=== PATIENT | male | born 1945 | race Caucasian/White ===

== ENCOUNTER → 2019-11-04 | Outpatient (CLI) | payer MEDICARE ==
--- NOTE | 2019-11-04 15:07 | XR ---
EXAMINATION TYPE: XR shoulder complete LT DATE OF EXAM: 11/04/2019 CLINICAL HISTORY: Left shoulder pain for a few days. Palpable lump per order. TECHNIQUE: Three views of the left shoulder are obtained. COMPARISON: None. FINDINGS: There is no acute fracture/dislocation evident in the left shoulder. Moderate narrowing an d spurring at acromioclavicular joint with capsular hypertrophy causing slight soft tissue prominence superiorly. Distal acromion morphology unremarkable Mild to moderate narrowing glenohumeral joint. T he visualized ribs are intact and unremarkable. IMPRESSION: As above.
--- NOTE | 2019-11-04 15:32 | US ---
EXAMINATION TYPE: US extremity nonvasc complt LT DATE OF EXAM: 11/04/2019 COMPARISON: Same day x-ray CLINICAL HISTORY: R22.32 LUMP ON LT SHOULDER,M26.52 DECREASED ROM LT SHOULDER. Pt states palpable lum p left shoulder In area of pt's palpable left shoulder, shows probable lipoma= 5.2 x 1.4 x 5.6 cm Oval well-circumscribed nonvascular lesion superficial to the deeper muscles that area of clinical co ncern favors benign lipoma. Finding can be confirmed with CT or MRI if desired. IMPRESSION: As above.
== END | disposition home or self-care (01) ==
LOC: RADUSWWP 14:29
PROVIDERS: ATTEND Family Medicine
DX: M25.512 Pain in left shoulder (principal); M25.812 Other specified joint disorders, left shoulder; R22.32 Localized swelling, mass and lump, left upper limb

== ENCOUNTER → 2019-11-24 | Outpatient (CLI) | payer MEDICARE ==
--- NOTE | 2019-11-24 12:45 | MR ---
EXAMINATION TYPE: MR scapula LT wo/w con DATE OF EXAM: 11/24/2019 COMPARISON: Ultrasound 11/04/2019, x-ray 11/18/2019 HISTORY: Pain in left shoulder area and Soft Tissue Mass. CONTRAST: Standard multiplanar, multisequence MRI departmental protocol utilizing 9.5 mL intravenous Gadavist g adolinium contrast. FINDINGS: There is a 5.6 cm fat signal corresponding to the area of palpable abnormality. There is fat saturati on. There is no enhancement. Grossly the rotator cuff tendons are intact. There is arthropathy of the glenohumeral joint and hyper trophic arthropathy of the AC joint. Grossly the labrum are intact. Bicipital tendinosis noted. No in traosseous lesion. IMPRESSION: 1. There is a 5.6 cm fat signal mass in the posterior upper soft tissues of the left shoulder. No enh ancement. Findings are compatible with a lipoma. Given the lesion measures greater than 5 cm atypical lipoma would also be in the differential diagnosis. 2. Bicipital tendinosis.
== END | disposition home or self-care (01) ==
LOC: RADMRIMAIN 11:10
PROVIDERS: ATTEND Orthopaedic Surgery
DX: R22.32 Localized swelling, mass and lump, left upper limb (principal); M67.88 Other specified disorders of synovium and tendon, other site
CPT/HCPCS: 73220; A9585

== ENCOUNTER → 2020-06-02 | Outpatient (CLI) | payer MEDICARE ==
--- NOTE | 2020-06-03 10:56 | ECHOF ---
Referral Reason:R01.1 Cardiac Murmur MEASUREMENTS -------- HEIGHT: 188.0 cm WEIGHT: 98.4 kg BP: RVIDd: 3.6 cm (< 3.3) IVSd: 1.4 cm (0.6 - 1.1) LVIDd: 3.9 cm (3.9 - 5.3) LVPWd: 1.4 cm (0.6 - 1.1) IVSs: 1.9 cm LVIDs: 2.7 cm LVPWs: 1.8 cm LAESV Index (A-L): 23.32 ml/m Ao Diam: 3.3 cm (2.0 - 3.7) AV Cusp: 2.0 cm (1.5 - 2.6) LA Diam: 3.9 cm (2.7 - 3.8) MV EXCURSION: 14.126 mm (> 18.000) MV EF SLOPE: 92 mm/s (70 - 150) EPSS: 0.7 cm MV E Ed: 0.62 m/s MV DecT: 268 ms MV A Ed: 0.72 m/s MV E/A Ratio: 0.87 RAP: 5.00 mmHg RVSP: 32.83 mmHg FINDINGS -------- Sinus rhythm. This was a technically difficult study with suboptimal views. The left ventricular size is normal. There is moderate concentric left ventricular hypertrophy. O verall left ventricular systolic function is low-normal with, an EF between 50 - 55 %. Apical septu m LV wall motion is hypokinetic. The right ventricle is mildly enlarged. Normal LA size by volume 22+/-6 ml/m2. The right atrium was not well visualized. 5.0mg of Lumason was utilized for enhancement of images Interatrial and interventricular septum intact. There is no evidence of aortic regurgitation. There is no evidence of aortic stenosis. Mild mitral regurgitation is present. Mild tricuspid regurgitation present. There is borderline pulmonary artery hypertension. The righ t ventricular systolic pressure, as measured by Doppler, is 32.83mmHg. There is no pulmonic regurgitation present. The aortic root size is normal. There is no pericardial effusion. CONCLUSIONS -------- 1. The left ventricular size is normal. 2. There is moderate concentric left ventricular hypertrophy. 3. Overall left ventricular systolic function is low-normal with, an EF between 50 - 55 %. 4. Apical septum LV wall motion is hypokinetic. 5. The right ventricle is mildly enlarged. 6. Mild mitral regurgitation is present. 7. Mild tricuspid regurgitation present. 8. There is borderline pulmonary artery hypertension. 9. The right ventricular systolic pressure, as measured by Doppler, is 32.83mmHg. RIG HAND: Rupa Chauhan RDCS
== END | disposition home or self-care (01) ==
LOC: RADECHMAIN 11:46
PROVIDERS: ATTEND Family Medicine
DX: I08.1 Rheumatic disorders of both mitral and tricuspid valves (principal); I27.21 Secondary pulmonary arterial hypertension; Z20.822 Contact with and (suspected) exposure to COVID-19
CPT/HCPCS: 86769; C8929; Q9950; 93306

== ENCOUNTER → 2020-06-22 | Outpatient (CLI) | payer MEDICARE ==
--- NOTE | 2020-06-22 08:33 | CTL ---
EXAMINATION TYPE: CT Low Dose Lung DATE OF EXAM ORDERED: 06/22/2020 HISTORY: Long-term tobacco use. Lung cancer screening CT DLP: 120.[address] CTDI: 4.0 mGy Automated exposure control for dose reduction was used. SCREENING VISIT: Initial study COMPARISON: None. TECHNIQUE: Low dose computed tomography scan was performed through the chest at 1 mm thick sections a nd reconstructed images in the coronal plane at [address] DIAGNOSTIC QUALITY: Limited, but interpretable Limitations due to body habitus and some respiratory motion artifact degradation. FINDINGS: LUNG NODULES: None. LUNGS: COPD: Severity: Mild Fibrosis: Severity: Minimal Lymph nodes: No greater than 1 cm Other findings: None RIGHT PLEURAL SPACE: Effusion: None Calcification: None Thickening: None Pneumothorax: None LEFT PLEURAL SPACE: Effusion: None Calcification: None Thickening: None Pneumothorax: None HEART: Heart Size: Normal Coronary calcification: Moderate Pericardial effusion: Non- OTHER FINDINGS: Upper abdomen: None Bony thorax: None Supraclavicular region: None Other: None IMPRESSION: Mild emphysematous change without suspicious nodules. CT LUNG RAD AND CT CHEST RECOMMENDATION: Lung-Rad 1 Negative: Continue annual screening with LDCT in 12 months. (CONSIDER- BASED ON AGE) S Modifier (other clinically significant findings): None
== END | disposition home or self-care (01) ==
LOC: RADCTMAIN 06:59
PROVIDERS: ATTEND Family Medicine
DX: Z12.2 Encounter for screening for malignant neoplasm of respiratory organs (principal); J43.9 Emphysema, unspecified; Z87.891 Personal history of nicotine dependence
CPT/HCPCS: 71271

== ENCOUNTER 2021-04-08 08:57 | Emergency (ER) | payer MEDICARE ==
[2021-04-08 09:09] VITALS: TEMP 98.6
--- NOTE | 2021-04-08 09:43 | ED ---
General Adult HPI - General Chief complaint: Fever Stated complaint: Fever/Bodyaches/Congestion Time Seen by Provider: 04/08/21 09:10 Source: patient, RN notes reviewed, old records reviewed Mode of arrival: ambulatory Limitations: no limitations - History of Present Illness Initial comments: This is a 75-year-old male who presents emergency Department stating that he started having fever last evening and little congestion and body aches. Patient states his 's test positive for COVID just today and he believes he probably has contracted COVID. Patient denies any loss of taste smell per patient denies any diarrhea per patient denies abdominal pain patient denies any chest pain or palpitations or difficulty breathing shortness of breath. - Related Data Allergies Allergy/AdvReac Type Severity Reaction Status Date / Time almond Allergy Unknown Verified 04/08/21 09:10 Penicillins Allergy Unknown Verified 04/08/21 09:10 Review of Systems ROS Statement: Those systems with pertinent positive or pertinent negative responses have been documented in the HPI. ROS Other: All systems not noted in ROS Statement are negative. Past Medical History Past Medical History: Hyperlipidemia, Hypertension, Thyroid Disorder History of Any Multi-Drug Resistant Organisms: None Reported Past Surgical History: Appendectomy Additional Past Surgical History / Comment(s): colon resection Past Psychological History: No Psychological Hx Reported Smoking Status: Former smoker Past Alcohol Use History: Occasional Past Drug Use History: None Reported General Exam - General Exam Comments Initial Comments: GENERAL: Patient is well-developed and well-nourished. Patient is nontoxic and well- hydrated and is in mild distress. ENT: Neck is soft and supple. No significant lymphadenopathy is noted. Oropharynx is clear. Moist mucous membranes. Neck has full range of motion without eliciting any pain. EYES: The sclera were anicteric and conjunctiva were pink and moist. Extraocular movements were intact and pupils were equal round and reactive to light. Eyelids were unremarkable. PULMONARY: Unlabored respirations. Good breath sounds bilaterally. No audible rales rhonchi or wheezing was noted. CARDIOVASCULAR: There is a regular rate and rhythm without any murmurs gallops or rubs. ABDOMEN: Soft and nontender with normal bowel sounds. SKIN: Skin is clear with no lesions or rashes and otherwise unremarkable. NEUROLOGIC: Patient is alert and oriented x3. Cranial nerves II through XII are grossly intact. Motor and sensory are also intact. Normal speech, volume and content. Symmetrical smile. MUSCULOSKELETAL: Normal extremities with adequate strength and full range of motion. LYMPHATICS: No significant lymphadenopathy is noted PSYCHIATRIC: Normal psychiatric evaluation. Limitations: no limitations Course Vital Signs 04/08/21 09:06 Temperature 98.6 F Pulse Rate 73 Respiratory 16 Rate Blood Pressure 110/59 O2 Sat by Pulse 96 Oximetry Medical Decision Making - Medical Decision Making Patient is positive for COVID. Patient received monoclonal antibodies. - Lab Data Lab Results 04/08/21 Range/Units 09:30 Coronavirus (PCR) Detected A (Not Detectd) Disposition Clinical Impression: COVID-19 Disposition: HOME SELF-CARE Instructions (If sedation given, give patient instructions): Coronavirus Disease 2019 (COVID-19) Is patient prescribed a controlled substance at d/c from ED?: No Referrals: Sydnie Resendiz MD [Primary Care Provider] - 1-2 days Time of Disposition: 10:08
[2021-04-08] MEDS ORDERED: SODIUM CHLORIDE 0.9% 50 ML IVPB ONE (10:30)
[2021-04-08] MEDS: BAMLANIVIMAB (EUA) 700 MG, ETESEVIMAB (EUA) 1,400 MG in SODIUM CHLORIDE 0.9% 100 ML IVPB ONE (11:30)
[2021-04-08 12:50] VITALS: BP 116/76; PULSE 72; RESP 18
== END 2021-04-08 12:50 | disposition home or self-care (01) ==
LOC: EC 08:57
DX: U07.1 COVID-19 (principal); I10 Essential (primary) hypertension; E78.5 Hyperlipidemia, unspecified; Z87.891 Personal history of nicotine dependence; Z88.0 Allergy status to penicillin
CPT/HCPCS: 87635; 99283; J3490

== ENCOUNTER 2021-04-26 02:04 | Emergency (ER) | payer MEDICARE ==
[2021-04-26] MEDS ORDERED: MORPHINE SULFATE 4 MG/ML SYRINGE IV STA (03:31)
[2021-04-26] MEDS ORDERED: ONDANSETRON 4 MG/2 ML VIAL IVP STA (03:31)
[2021-04-26] MEDS ORDERED: SODIUM CHLORIDE 0.9% 1,000 ML IV STA (03:31)
--- NOTE | 2021-04-26 03:45 | ED ---
Abdominal Pain HPI - General Source: patient, RN notes reviewed, old records reviewed Mode of arrival: ambulatory Limitations: no limitations - History of Present Illness MD Complaint: abdominal pain -: days(s) Location: diffuse, RLQ Radiation: RLQ Migration to: RLQ Severity: moderate Severity scale (1-10): 4 Quality: stabbing, aching Consistency: constant Improves With: nothing Worsens With: nothing Associated Symptoms: nausea, constipation Treatments Prior to Arrival: other (none) <Carmine Traylor - Last Filed: 04/26/21 05:14> <Florentin Ibanez - Last Filed: 04/26/21 08:05> - General Chief Complaint: Abdominal Pain Stated Complaint: Abdominal pain Time Seen by Provider: 04/26/21 03:32 - History of Present Illness Initial Comments: This is a 75-year-old male to the ER today for evaluation. Patient is presented today for evaluation regards to significant abdominal pain severe with nausea no vomiting no fevers. Right-sided abdominal pain. Patient has had his appendix removed. Patient is also had a colon resection and has had prior colonoscopies. (Carmine Traylor) - Related Data Home Medications Medication Instructions Recorded Confirmed Cholecalciferol [Vitamin D3 (125 125 mcg PO DAILY 04/08/21 04/08/21 Mcg = 5000 Iu)] Levothyroxine Sodium [Synthroid] 75 mcg PO DAILY 04/08/21 04/08/21 Losartan-Hctz 50-12.5 mg [Hyzaar 1 tab PO DAILY 04/08/21 04/08/21 50-12.5] Multivitamins, Thera [Multivitamin 1 tab PO DAILY 04/08/21 04/08/21 (formulary)] Simvastatin 40 mg PO DAILY 04/08/21 04/08/21 Zinc 50 mg PO DAILY 04/08/21 04/08/21 Previous Rx's Medication Instructions Recorded Famotidine [Pepcid] 20 mg PO DAILY 14 Days #14 tablet 04/26/21 Allergies Allergy/AdvReac Type Severity Reaction Status Date / Time almond Allergy Dyspnea Verified 04/26/21 02:49 grass pollen Allergy Diarrhea Verified 04/26/21 02:49 Iodine and Iodide Containing Allergy Anaphylaxis Verified 04/26/21 04:48 Produc Penicillins Allergy Rash/Hives Verified 04/26/21 02:49 Review of Systems ROS Other: All systems not noted in ROS Statement are negative. <Carmine Traylor - Last Filed: 04/26/21 05:14> ROS Other: All systems not noted in ROS Statement are negative. <Florentin Ibanez - Last Filed: 04/26/21 08:05> ROS Statement: Those systems with pertinent positive or pertinent negative responses have been documented in the HPI. Past Medical History Past Medical History: Hyperlipidemia, Hypertension, Thyroid Disorder History of Any Multi-Drug Resistant Organisms: None Reported Past Surgical History: Appendectomy Additional Past Surgical History / Comment(s): colon resection Past Psychological History: No Psychological Hx Reported Smoking Status: Former smoker Past Alcohol Use History: Occasional Past Drug Use History: None Reported <Carmine Traylor - Last Filed: 04/26/21 05:14> General Exam Limitations: no limitations General appearance: alert, in no apparent distress Head exam: Present: atraumatic, normocephalic, normal inspection Eye exam: Present: normal appearance, PERRL, EOMI. Absent: scleral icterus, conjunctival injection, periorbital swelling ENT exam: Present: normal exam, mucous membranes moist Neck exam: Present: normal inspection. Absent: tenderness, meningismus, lymphadenopathy Respiratory exam: Present: normal lung sounds bilaterally. Absent: respiratory distress, wheezes, rales, rhonchi, stridor Cardiovascular Exam: Present: regular rate, normal rhythm, normal heart sounds. Absent: systolic murmur, diastolic murmur, rubs, gallop, clicks GI/Abdominal exam: Present: soft, normal bowel sounds. Absent: distended, tenderness, guarding, rebound, rigid Extremities exam: Present: normal inspection, full ROM, normal capillary refill. Absent: tenderness, pedal edema, joint swelling, calf tenderness Back exam: Present: normal inspection Neurological exam: Present: alert, oriented X3, CN II-XII intact Psychiatric exam: Present: normal affect, normal mood Skin exam: Present: warm, dry, intact, normal color. Absent: rash <Carmine Traylor - Last Filed: 04/26/21 05:14> Course <Carmine Traylor - Last Filed: 04/26/21 05:14> Vital Signs 04/26/21 04/26/21 02:47 05:49 Temperature 98.8 F 97.8 F Pulse Rate 58 L 54 L Respiratory 18 19 Rate Blood Pressure 152/81 117/65 O2 Sat by Pulse 98 Oximetry - Reevaluation(s) Reevaluation #1: 04/26/21 05:15 Medical record is reviewed (Carmine Traylor) Reevaluation #2: 04/26/21 05:15 Patient has adequate pain control (Carmine Traylor) Medical Decision Making - Lab Data Result diagrams: 04/26/21 04:05 04/26/21 04:05 - EKG Data -: EKG Interpreted by Me (EKG is sinus bradycardia 51 DC 172 QRS 90 QTC 394) <Carmine Traylor - Last Filed: 04/26/21 05:14> - Lab Data Result diagrams: 04/26/21 04:05 04/26/21 04:05 <Florentin Ibanez - Last Filed: 04/26/21 08:05> - Medical Decision Making Patient was signed out to me from the overnight physician pending ultrasound of the gallbladder. He presented for abdominal pain on the right side. Laboratory studies as well as CT imaging were unremarkable except for a distended gallbladder with no signs of infection or stones. Patient is currently asymptomatic and feels well. He'll likely be discharged home following ultrasound. Patient's gallbladder ultrasound revealed no mobile gallstones. Gallbladder is mildly distended which is nonspecific. No other associated findings. On reevaluation of the patient, he was feeling improved. He has no acute complaints at this time. We discussed the results of his ultrasound. I believe it is safe for him to be discharged home at this time with follow-up with GI. He was in agreement with this plan. I will provide the patient with a prescription for famotidine. I instructed the patient to follow up with their PCP in the next 3 days. I provided contact information for follow up with [facility]. I explained that the patient should return to the emergency department if they experience any worsening symptoms. Strict return precautions were discussed with the patient. The patient expressed understanding of these instructions. I answered all questions that the patient had. The patient was discharged home in good condition with their prescriptions and follow up information. (Florentin Ibanez) - Lab Data Lab Results 04/26/21 04/26/21 04/26/21 Range/Units 04:05 04:05 04:05 WBC 10.9 H (3.8-10.6) k/uL RBC 4.53 (4.30-5.90) m/uL Hgb 14.1 (13.0-17.5) gm/dL Hct 41.1 (39.0-53.0) % MCV 90.7 (80.0-100.0) fL MCH 31.1 (25.0-35.0) pg MCHC 34.3 (31.0-37.0) g/dL RDW 12.4 (11.5-15.5) % Plt Count 328 (150-450) k/uL MPV 7.8 Neutrophils % 68 % Lymphocytes % 23 % Monocytes % 6 % Eosinophils % 1 % Basophils % 0 % Neutrophils # 7.3 (1.3-7.7) k/uL Lymphocytes # 2.5 (1.0-4.8) k/uL Monocytes # 0.7 (0-1.0) k/uL Eosinophils # 0.1 (0-0.7) k/uL Basophils # 0.0 (0-0.2) k/uL Sodium 136 L (137-145) mmol/L Potassium 4.1 (3.5-5.1) mmol/L Chloride 102 (98-107) mmol/L Carbon Dioxide 25 (22-30) mmol/L Anion Gap 9 mmol/L BUN 24 H (9-20) mg/dL Creatinine 0.97 (0.66-1.25) mg/dL Est GFR (CKD-EPI)AfAm 87 (>60 ml/min/1.73 sqM) Est GFR (CKD-EPI)NonAf 76 (>60 ml/min/1.73 sqM) Glucose 114 H (74-99) mg/dL Plasma Lactic Acid Oliver 1.4 (0.7-2.0) mmol/L Calcium 8.9 (8.4-10.2) mg/dL Total Bilirubin 0.7 (0.2-1.3) mg/dL AST 25 (17-59) U/L ALT 24 (4-49) U/L Alkaline Phosphatase 55 (38-126) U/L Total Protein 6.9 (6.3-8.2) g/dL Albumin 4.0 (3.5-5.0) g/dL Amylase 65 (30-110) U/L Lipase 103 (23-300) U/L Disposition <Carmine Traylor - Last Filed: 04/26/21 05:14> Is patient prescribed a controlled substance at d/c from ED?: No <Florentin Ibanez - Last Filed: 04/26/21 08:05> Clinical Impression: Abdominal pain of unknown etiology Disposition: HOME SELF-CARE Condition: Good Instructions (If sedation given, give patient instructions): Abdominal Pain (ED) Prescriptions: Famotidine [Pepcid] 20 mg PO DAILY 14 Days #14 tablet Referrals: None,Stated [Primary Care Provider] - 1-2 days Jacqui Bird MD [STAFF PHYSICIAN] - 1-2 days
[2021-04-26 04:25] LABS: Basophils % (A) 0 %; Eosinophils # (A) 0.1 k/uL (0-0.7); Eosinophils % (A) 1 %; HCT 41.1 % (39.0-53.0); HGB 14.1 gm/dL (13.0-17.5); Lymphocytes # (A) 2.5 k/uL (1.0-4.8); Lymphocytes % (A) 23 %; MCH 31.1 pg (25.0-35.0); MCHC 34.3 g/dL (31.0-37.0); MCV 90.7 fL (80.0-100.0); Mean Platelet Volume 7.8; Monocytes # (A) 0.7 k/uL (0-1.0); Monocytes % (A) 6 %; Neutrophils # (A) 7.3 k/uL (1.3-7.7); Neutrophils % (A) 68 %; Platelet Count 328 k/uL (150-450); RBC 4.53 m/uL (4.30-5.90); RDW 12.4 % (11.5-15.5); WBC 10.9 k/uL (3.8-10.6)
[2021-04-26 04:36] LABS: Calcium 8.9 mg/dL (8.4-10.2); Potassium 4.1 mmol/L (3.5-5.1); Total Bilirubin 0.7 mg/dL (0.2-1.3); Total Protein 6.9 g/dL (6.3-8.2)
[2021-04-26] MEDS ORDERED: FAMOTIDINE 20 MG/2 ML VIAL IV STA (04:47)
[2021-04-26] MEDS ORDERED: diphenhydrAMINE 50 MG/ML 1 ML VIAL IVP STA (04:47)
[2021-04-26] MEDS ORDERED: methylPREDNISolone SOD SUCCI 125 MG/2 ML VIAL IV STA (04:47)
--- NOTE | 2021-04-26 05:26 | CT ---
EXAMINATION TYPE: CT abdomen pelvis w con DATE OF EXAM: 04/26/2021 COMPARISON: None HISTORY: right side abd pain after eating CT DLP: 1433.3 mGycm Automated exposure control for dose reduction was used. CONTRAST: Performed with IV Contrast, patient injected with 100 mL of Isovue 300. Images obtained from the diaphragm to the floor the pelvis with IV contrast. Lung bases are clear. There is no pleural effusion. Heart size is normal. There is no pericardial eff usion. Liver spleen and stomach pancreas appear intact. Bile ducts are not dilated. Gallbladder appears enl arged and measures 4.5 cm in diameter. There is no adrenal mass. Kidneys show satisfactory contrast opacification. There is no hydronephrosi s. Ureters are not dilated. There is no retroperitoneal adenopathy. There is mild atheromatous change in the abdominal aorta. There are numerous large bowel diverticula. There is no ascites of diverticu litis. Appendix not clearly seen. No sign of thickened appendix. There is no mesenteric edema. There is no ascites or free air. There is no bowel obstruction. Termina l ileum appears normal. The lumbar vertebra have normal alignment. There is no compression fracture. There is mild spurring o f the endplates. Bony pelvis is intact. The hip joints are intact. IMPRESSION: There is a borderline dilated gallbladder measuring 4.5 cm that could relate to gallbladder dysfuncti on or cholecystitis. Appendix not seen. Minimal atherosclerotic vascular disease. Colonic diverticulosis without diverticulitis.
[2021-04-26] MEDS ORDERED: KETOROLAC 15 MG/ML 1 ML VIAL IVP STA (06:13)
--- NOTE | 2021-04-26 07:47 | US ---
EXAMINATION TYPE: US gallbladder DATE OF EXAM: 04/26/2021 COMPARISON: CT earlier today CLINICAL HISTORY: pain. Paraumbilical pain x 1 day; prior colon resection; renal stones; appendectomy EXAM MEASUREMENTS: Liver Length: 16.8 cm Gallbladder Wall: 0.1 cm CBD: 0.1 cm Right Kidney: 10.5 x 7.5 x 5.1 cm Pancreas: Slightly heterogeneous Liver: areas of fatty infiltration noted, especially right lobe Gallbladder: no stones or sludge is seen; pericholecystic fluid is noted; gallbladder size is wnl as is less than10.0 x 6.0cm. Evidence for sonographic Hawk's sign: no CBD: wnl Right Kidney: No hydronephrosis or masses seen Visualized pancreas appears within normal limits. IVC is seen near the hepatic dome. Visualized liver is heterogeneously hyperechoic without suspicious focal mass or ductal dilatation. Gallbladder has d istended margins with trace adjacent ascites correlating with CT. No intraluminal shadowing gallstone s. No right-sided hydronephrosis. IMPRESSION: No shadowing mobile gallstones. Gallbladder redemonstrated with distended margins and wit h trace adjacent ascites, nonspecific findings.
[2021-04-26 08:10] VITALS: BP 136/80; PULSE 60; RESP 18; TEMP 98.9
== END 2021-04-26 08:08 | disposition home or self-care (01) ==
LOC: EC 02:04
DX: R10.31 Right lower quadrant pain (principal); I10 Essential (primary) hypertension; E78.5 Hyperlipidemia, unspecified; E07.9 Disorder of thyroid, unspecified; Z88.0 Allergy status to penicillin; Z90.49 Acquired absence of other specified parts of digestive tract; Z87.891 Personal history of nicotine dependence
CPT/HCPCS: 99284; 96374; 96375 ×5; 96361; 36415; 80053; 82150; 83605; 83690; 85025; 76705; 74177; J2270; J1200; J2930; J2405; J1885; Q9967